=== PATIENT | male | born 1935 | race Caucasian/White ===

== ENCOUNTER 2017-02-17 21:18 | Observation (INO) | payer MEDICARE, OTHER ==
[~2017-02-17] VITALS: Ht 177.8 cm; Wt 84.9 kg
[~2017-02-17 21:18] MED LIST: ASPI81TA40 PO; CHOL10008 PO; FLONASE NS; IPRA3AMP HHN; MTP50TCR PO; PAX20 PO; PRE20 PO; ZES20 PO
[2017-02-17 21:24] VITALS: BP 185/95; PULSE 80; RESP 20; O2SAT 98
[2017-02-17 22:02] LABS: BASOPHILS % (AUTO) 0.9 % (0-3); EOSINOPHILS % (AUTO) 4.3 % (0-5); MONOCYTES % (AUTO) 15.2 % (4-12); Mean Corpuscular Hemoglobin 30.9 pg (27.0-35.0); Mean Corpuscular Volume 90.5 fL (81-100); NEUTROPHILS % (AUTO) 48.1 % (40-74); Platelet Count 226 bil/L (150-400)
[2017-02-17 22:14] LABS: INR 0.94 ratio
[2017-02-17] MEDS ORDERED: 0.9% Sodium Chloride 500 ML IV ONE (22:20)
[2017-02-17 22:32] LABS: TROPONIN T 0.01 ug/L (0.0-0.011)
--- NOTE | 2017-02-17 22:47 | ED.REPORT ---
HPI-Eye Problem Date of Service Feb 17, 2017 ED Provider: Eric Rojas MD 81-year-old male with past medical history of hypertension since the emergency department today after an episode of diplopia. He states that this occurred well he was sitting at home watching TV. He was concerned about this and called his daughter who noted at that time that he had small amount of slurred speech, but he states that he was not aware of any slurring of his speech. He denies any other symptoms related to this episode including weakness, imbalance , decreased neurological sensations, confusion. Upon arrival to the hospital he states that his symptoms have resolved over the past hour. He currently experiences no diplopia or visual changes, and the family is unaware of any changes in his speech. His stroke score here in the ED today is currently 0. He denies headache chest pain, shortness of breath, nausea, vomiting, changes in bowel or bladder. Nursing Notes Stated Complaint: SEEING DOUBLE/TRIPLE Chief Complaint: Neuro Symptoms/ Deficits Nursing Notes Reviewed: Yes Allergies: Coded Allergies: No Known Allergies (Verified , 02/18/17) Scheduled Aspirin Chew (Aspirin Chew) 81 Mg Chew 81 MG PO QAM Cholecalciferol (Vitamin D3) (Vitamin D3) 2,000 Unit Tablet 2,000 UNIT PO QAM Lisinopril (Lisinopril) 40 Mg Tablet 40 MG PO QAM Metoprolol Tartrate (Metoprolol Tartrate) 50 Mg Tablet 50 MG PO BID Paroxetine (Paroxetine) 20 Mg Tablet 20 MG PO QAM Tamsulosin ER (Tamsulosin ER) 0.4 Mg Cap.er.24h 0.4 MG PO DAILYWD Scheduled PRN Albuterol HFA (Proair HFA) 8.5 Gm Hfa.aer.ad 2 PUFFS INHALATION Q4H PRN PRN For Shortness of Breath Fluticasone Propionate (Flonase Allergy Relief) 50 Mcg/Actuation [place].susp 1 SPRAYS NS DAILY PRN PRN For Congestion Loratadine (Loratadine) 10 Mg Capsule 10 MG PO DAILY PRN PRN allergies General Time Seen by MD: 21:32 Chief Complaint Both eyes affected, Double vision Hx Obtained From: Patient Sudden in Onset?: Yes Onset Occurred: Just prior to arrival Progression Since Onset: Resolved Context: Occurred at: Home Severity: Current: No pain currently Risk-Eye Problem Eye Injury Risk Stratification RF Statements: Risk factors reviewed Past Medical History Past Medical History Reports: Hypertension Smoking History Current Every Day Smoker Social History Alcohol Use: 1-3 per day Drug Use: Denies drug use Other Social History: Lives alone Review of Systems Complete sys rev & neg: except as marked. Physical Exam Initial Vital Signs Vital Signs (First) Date Time Temp Pulse Resp B/P Pulse Ox O2 Delivery O2 Flow Rate FiO2 02/17/17 21:24 36.7 80 20 185/95 98 Room Air Initial VS: Reviewed, Vital signs abnormal General / Const: Well-developed, Well-nourished ENT: Mucous membranes moist, Conjunctiva normal, No scleral icterus Neck: Supple, Non-tender, Full range of motion Respiratory: Breath sounds normal, Clear to auscultation, No respiratory distress Cardiovascular: Regular rate & rhythm, Heart sounds normal, Intact distal pulses Abdomen / GI: Soft, Non-tender, No guarding, No rebound, No distention Extremities: Vascular intact, Neuro intact, No swelling, No tenderness Skin: Warm, Dry, No cyanosis Neurologic: Alert, Oriented, Nonfocal Psychiatric: Mood/affect normal, Behavior normal, Normal thought content Neurologic: Oriented X3, Speech NL, No motor deficits, No sensory deficits, CN II - XII intact, Cerebellar NL Mental Status: Negative: Confused Interpretation & Diagnostics Interpretation & Diagnostics: Noncontrast CT Head Conclusion: Loss of wilhelm/white matter differentiation involving the inferior left temporal lobe suggesting an acute infarct. Moderate involutional changes. Moderate patchy low density bilaterally in the deep white matter likely due to chronic ischemic small vessel disease. No acute intracranial abnormality. These findings were discussed with Dr. Rojas /04/2017 10:11 PM This report is transmitted to the emergency room at 02/17/2017 10:22 PM weight shifter radiology Lab Results Interpretation Result Diagram: 02/18/17 0520 02/18/17 0520 Test 02/17/17 21:45 02/17/17 23:15 Neutrophils (%) (Auto) 48.1% (40-74) Lymphocytes (%) (Auto) 31.2% (14-46) Monocytes (%) (Auto) 15.2% (4-12) Eosinophils (%) (Auto) 4.3% (0-5) Basophils (%) (Auto) 0.9% (0-3) Hold Purple Top Tube Received (Received) Prothrombin Time 10.0sec (8.1-12.5) Prothromb Time International Ratio 0.94ratio Activated Partial Thromboplast Time 33.6sec (22.8-33.0) Hold Blue Top Tube Received (Received) Total Bilirubin 0.5mg/dL (0.0-1.2) Aspartate Amino Transf (AST/SGOT) 22U/L (0-50) Alanine Aminotransferase (ALT/SGPT) 13U/L (0-44) Alkaline Phosphatase 104U/L (25-160) Troponin T 0.010ug/L (0.0-0.011) Total Protein 7.1g/dL (6.4-8.4) Albumin 4.1g/dL (3.4-5.0) Hold [place] Top Tube Received (Received) Hold [place] Top Tube Received (Received) Urine Color Yellow (YELLOW) Urine Appearance Clear (CLEAR,HAZY) Urine pH 6.5 (5.0-8.0) Urine Specific [place] 1.005 (1.003-1.035) Urine Protein Negativemg/dL (NEG,TRACE) Urine Glucose (UA) Negativemg/dL (NEGATIVE) Urine Ketones Negativemg/dL (NEGATIVE) Urine Occult Blood Trace (NEGATIVE) Urine Nitrite Negative (NEGATIVE) Urine Bilirubin Negative (NEGATIVE) Urine Urobilinogen Normalmg/dL (NORMAL) Urine Leukocyte Esterase Negative (NEGATIVE) Urine RBC 0-2/hpf (0-2) Urine WBC 0-5/hpf (0-5) Urine Epithelial Cells Occasional/hpf (NONE-MOD) Urine Crystals None seen (NONE SEEN) Urine Bacteria None/hpf (NONE-FEW) Urine Hyaline Casts None/lpf (NONE) Urine Granular Casts None seen (NONE SEEN) Urine Waxy Casts None seen (NONE SEEN) Urine Red Blood Cell Casts None seen (NONE SEEN) Urine White Blood Cell Casts None seen (NONE SEEN) Urine Mucus None seen (None Seen) Urine Trichomonas None seen (NONE SEEN) Urine Yeast None (NONE SEEN) Urinalysis Comment None Urine Culture Reflexed Not indicated Lab Results Interpretation: Clinically insignificant labs ECG Interpretation Time: 10:04 Interpreted by: ED physician Normal ECG Interpretation: Normal rate, Normal sinus rhythm, Normal QRS, Normal axis, Normal intervals Atrium and Vent Size: Atrial enlargement - L, Ventricle enlarged - L Re-Eval/Medical Decision Med Decision/Clinical Course 81-year-old presents with diplopia and apparently some brief speech disturbances sounds like dysarthria as described by his family. All of these symptoms are now resolved. His stroke score is zero. CT scan shows stroke of indeterminate age, subacute in the inferior temporal lobe. No evidence of bleeding. He has no symptoms or signs referable to this area at this time. This may have been a stroke in the past week or so that was asymptomatic. Admitted now for vascular workup including MRA stroke protocol and echocardiography. The results of the CT scan and his presentation are concerning for TIA and should be evaluated and observed overnight. Counseled Regarding: Diagnosis, Lab results, Need for admission Discharge & Departure Primary Impression: TIA (transient ischemic attack) Transient cerebral ischemia type: unspecified Qualified Code: G45.9 - Transient cerebral ischemic attack, unspecified Additional Impressions: Double vision Stroke CVA mechanism: thrombosis Precerebral and cerebral artery: middle cerebral artery Laterality of affected vessel: left Qualified Code: I63.312 - Cerebral infarction due to thrombosis of left middle cerebral artery Disposition: ADMITTED TO HOSPITAL Discharge Condition All VS Reviewed: Yes Condition: Stable Referrals: Angeline Corrales MD (PCP) Isael Rodrigues DO Feb 17, 2017 22:47 Eric Rojas MD Feb 18, 2017 07:24 None/lpf (NONE) Urine Granular Casts None seen (NONE SEEN) Urine Waxy Casts None seen (NONE SEEN) Urine Red Blood Cell Casts None seen (NONE SEEN) Urine White Blood Cell Casts None seen (NONE SEEN) Urine Mucus None seen (None Seen) Urine Trichomonas None seen (NONE SEEN) Urine Yeast None (NONE SEEN) Urinalysis Comment None Urine Culture Reflexed Not indicated Lab Results Interpretation: Clinically insignificant labs ECG Interpretation Time: 10:04 Interpreted by: ED physician Normal ECG Interpretation: Normal rate, Normal sinus rhythm, Normal QRS, Normal axis, Normal intervals Atrium and Vent Size: Atrial enlargement - L, Ventricle enlarged - L Re-Eval/Medical Decision Med Decision/Clinical Course The results of the CT scan and his presentation are concerning for TIA and should be evaluated and observed overnight. Counseled Regarding: Diagnosis, Lab results, Need for admission Discharge & Departure Primary Impression: TIA (transient ischemic attack) Transient cerebral ischemia type: unspecified Qualified Code: G45.9 - Transient cerebral ischemic attack, unspecified Additional Impression: Double vision Disposition: ADMITTED TO HOSPITAL Discharge Condition All VS Reviewed: Yes Condition: Stable Referrals: Angeline Corrales MD (PCP) Isael Rodrigues DO Feb 17, 2017 22:47
[2017-02-17 22:54] VITALS: BP 168/73; PULSE 79; RESP 21; O2SAT 94
[2017-02-17 23:38] LABS: APPEARANCE,URINE CLEAR (CLEAR,HAZY); COLOR,URINE YELLOW (YELLOW); OCCULT BLOOD,URINE TRACE (NEGATIVE); PH,URINE 6.5 (5.0-8.0); UROBILINOGEN,URINE NORMAL (NORMAL)
--- NOTE | 2017-02-17 23:41 | PCM.HPMED ---
Subjective Date of Service Feb 17, 2017 Primary Provider: Admitting Physician: Primary Care Physician: Angeline Corrales MD Attending Physician: Admit Status: From the Emergency Department Chief Complaint: Double vision History of Present Illness: Gómez Segundo is an 81-year-old man with past medical history significant for hypertension, COPD, anxiety, and tobacco use who presents with diplopia. Patient states that she was lying in bed watching TV when suddenly he began to have double vision around 1999 on 02/17/17. He immediately called his daughter who arrived at the house and subsequently brought him to the ED. Daughter states that when her father called his speech was clear and easily understood. Patient denies any associated symptoms including weakness, slurred speech, facial droop, confusion, or headache. Diplopia was still present on arrival to the ED but resolved without intervention over the next half an hour. Patient denies any use of blood thinners aside from aspirin 81 mg. Patient denies any prior episodes of diplopia or history of TIA or stroke. He denies any shortness of breath, chest pain, nausea, vomiting, dysuria, or diarrhea. On presentation to the ED vitals were temperature 36.7, pulse 80, respiratory rate 20 saturating 98% on room air, and blood pressure 185/95. Brain CT revealed loss of currently in white matter differentiation involving the inferior left temporal lobe suggesting an acute infarct, moderate patchy low density deep white matter changes likely due to chronic ischemic small vessel disease, but no acute intracranial abnormality. Review of Systems: Comprehensive review of systems was conducted with the patient and found to be negative except as noted above in HPI. Allergies Coded Allergies: No Known Allergies (Verified , 02/18/17) Home Medications Aspirin 81 mg daily Tamsulosin 0.4 mg daily Provera Paroxetine 20 mg daily Metoprolol tartrate 50 mg twice a day Loratadine 10 mg daily Lisinopril 40 mg daily Flonase PMH Hypertension COPD Anxiety Renal insufficiency Tobacco abuse Echocardiogram on 10/23/10 showed an EF of 55-60%, with no focal wall motion abnormalities, and aortic valve with some sclerotic changes. Surgical History None Family History Father - myocardial infarction at age 71 Mother - myocardial infarction age 65 Sister - colon cancer Social History Occupation: retired Hx Alcohol Use: Yes (1 beer a day) Hx Substance Use: No Hx Tobacco Use: Yes (lifelong) Smoking Status: Current Every Day Smoker Living Arrangement: Alone Exam Vital Signs Vital Sign - Last Date Time Temp Pulse Resp B/P Pulse Ox O2 Delivery O2 Flow Rate FiO2 02/17/17 22:54 79 21 168/73 94 Room Air 02/17/17 21:24 36.7 Exam General: No acute distress, well-developed, well-nourished, appropriately interactive HEENT: Normocephalic, atraumatic. Edentulous. External ears without defect. Pupils equal, round, and reactive to light and accommodation. Anicteric sclerae , moist conjunctivae, and no lid lag. Oropharynx free of erythema and cobble stoning with moist mucosa. Neck: Supple with full range of motion. No jugular venous distension. No bruits. No lymphadenopathy or thyromegaly. Cardiovascular: Regular rate and rhythm with no murmurs, rubs, or gallops appreciated Pulmonary: Diffuse, faint crackles and wheezes. Normal respiratory effort with no use of accessory muscles. Abdomen: Bowel tones present. Soft, nontender, nondistended. No hepatosplenomegaly or masses appreciated. Extremities: No clubbing, cyanosis, edema, or lymphadenopathy appreciated. Skin: Normal temperature, turgor, and texture; no rash, ulcers, or subcutaneous nodules appreciated. Neurological: Cranial nerves grossly intact. Normal muscle strength, tone, and bulk. Reflexes, coordination, and sensory function within normal limits. No known gait impairment. Psychiatric: Normal mood and affect. Alert and oriented to person, place, and time. Lab and Diagnostics Result Diagram: 02/17/17214402/[id number] X-Rays, CTs and MRIs Noncontrast CT Head Conclusion: Loss of wilhelm/white matter differentiation involving the inferior left temporal lobe suggesting an acute infarct. Moderate involutional changes. Moderate patchy low density bilaterally in the deep white matter likely due to chronic ischemic small vessel disease. No acute intracranial abnormality. These findings were discussed with Dr. Rojas /04/2017 10:11 PM This report is transmitted to the emergency room at 02/17/2017 10:22 PM information management specialist radiology 12-lead ECG Normal sinus rhythm Assessment & Plan Gómez Segundo is an 81-year-old man with past medical history significant for hypertension, COPD, anxiety, and tobacco use who presents with diplopia. Admitted for observation of possible TIA. TIA, present on admission, active. - Not a candidate for TPA due to symptom resolution. - Head CT without contrast results as above. - ABCD score was 3. - EKG showed normal sinus rhythm. - Monitor on telemetry to rule out atrial fibrillation. - MR stroke protocol ordered. - Echo with bubble study ordered. - Consider lower extremity ultrasound to rule out DVTs in the morning. - Allow for permissive hypertension to not treat unless SBP >220 or DBP >120 - Aspirin 325 mg given. - Clopidogrel ordered. - Atorvastatin 40 mg daily started. - Lipid Panel pending. - Speech and swallow evaluation pending. Hypertension, present admission, active. Patient presented with BP of 185/95. Unclear whether he took his evening dose of metoprolol. - Allow permissive hypertension as above. - Home regimen includes metoprolol tartrate 50 mg twice a day and lisinopril 40 mg daily. COPD, present on admission, chronic. Secondary to tobacco use. - Home regimen includes pro-air as needed. - Duonebs every 6 hours as needed. Anxiety, present on admission, presumed stable. - Continue home regimen of paroxetine 20 mg daily. Tobacco use disorder, present on admission, ongoing. - Patient declined nicotine patch. BPH, present on admission, chronic. - Home regimen includes Tamsulosin 0.4 mg daily. PRN Medications - Acetaminophen as needed for mild pain/fever/headache - Bowel regimen as needed - Antiemetic as needed Patient is admitted under observation status with expected length of stay less than 2 midnights due to severity of presenting symptoms, risk of adverse event, and complexity of treatment plan. Pain Evaluation: Adequate Pain Control GI Prophylaxis: Not indicated VTE Prophylaxis: Sub-Q Heparin (Unfractionated), SCDs Resuscitation Status: DNR/DNI:Do Not Resuscitate/Intubate Attending Statement The patient was seen and examined together with house staff on 02/18/17 and I agree with the history, exam and plan as outlined in the note above. PILY GUTIERREZ DO Feb 17, 2017 23:41 Meaghan Cano DO Feb 18, 2017 05:22
[2017-02-17] MEDS ORDERED: Ondansetron 2 mg/mL 2 mL Inj IVPUSH PRN (23:45)
[2017-02-17] MEDS ORDERED: Alum-Mag Hydrox-Simeth 30 mL Suspension PO PRN (23:45)
[2017-02-18] VITALS (12 sets, daily range): BP systolic 128–178; BP diastolic 57–77; PULSE 67–88; RESP 16–20; O2SAT 93–95
[2017-02-18] MEDS ORDERED: ALBU8.5H2 INHALATION (00:09)
[2017-02-18] MEDS ORDERED: ASPI81TA3 PO (00:09)
[2017-02-18] MEDS ORDERED: LORA10CA9 PO (00:09)
[2017-02-18] MEDS ORDERED: CHOL200025 PO (00:12)
[2017-02-18] MEDS ORDERED: TAMS0.4C29 PO (00:12)
[2017-02-18] MEDS ORDERED: FLUT9.9S NS (00:12)
[2017-02-18] MEDS ORDERED: PARO20TA5 PO (00:12)
[2017-02-18] MEDS ORDERED: METO50TA3 PO (00:12)
[2017-02-18] MEDS ORDERED: LISI40TA PO (00:12)
[2017-02-18] MEDS ORDERED: Albuterol-Ipratropium 3 mL Inhalation Solution NEB PRN (01:15)
--- NOTE | 2017-02-18 05:16 | NUR ---
Admit: Pt arrived to room 3008 around 0045, ambulated self to scale, BR and bed; daughters at bedside for admit and assisted with answering admit questions. Pt AOx3, no neuro deficits noted. Tele placed, RA, bed alarm on for safety. Pharmacist in ED entered pt's home medication list. No c/o pain, chest pain or SOB. Skin chest not completed at this time, pt denies any sores or concerning areas on skin; will pass to dayshift RN to complete.
[2017-02-18 05:44] LABS: Mean Corpuscular Hemoglobin 30.7 pg (27.0-35.0); Mean Corpuscular Volume 88.9 fL (81-100)
--- NOTE | 2017-02-18 07:57 | DRSVH ---
PROCEDURE: CT BRAIN WITHOUT CONTRAST ([id number]) INDICATIONS: DOUBLE/TRIPLE VISION X1 HOUR TECHNIQUE: Noncontrast 4.5 mm thick angled axial sections acquired from the foramen magnum to the vertex, with c oronal reformats. COMPARISON: CT brain 11/27/2010; 03/10/2009; 01/04/2004 FINDINGS: Preliminary report by shift coordinator radiology Image quality: Excellent. CSF spaces: Basal cisterns are patent. No extra-axial fluid collections. The ventricles are symmet génesis in size and shape. Brain: No intracranial bleeds or masses. Mild, ill-defined hypodensity within the left temporal lobe is suggestive of acute ischemic infarct. There is also an area of hypodensity in the left insula and centrum semi-ovale that appears increased since prior exam. There is cerebral volume loss for age, w ith resultant ventricular and sulcal prominence. There are periventricular and deep white matter chr onic small vessel ischemic changes. There is intracranial internal carotid artery atherosclerosis. Skull and face: Calvarium and visualized facial bones appear intact, without suspicious lesions. Sinuses: Visualized sinuses and mastoids are clear. IMPRESSION: 1. Findings are suggestive of acute left temporoparietal ischemic infarct. Suggest MRI imaging and cl inical correlation for confirmation. 2. Mild age related atrophy and chronic deep white matter ischemic changes. Findings are concordant with the preliminary report. Dictated by: Jim Nuñez M.D. on 02/18/2017 at 7:50 Approved by: Jim Nuñez M.D. on 02/18/2017 at 7:55
[2017-02-18] MEDS: Heparin 5,000 Unit/mL Inj SUBQ SCH ×2 (08:35→20:30)
--- NOTE | 2017-02-18 10:16 | NUR ---
Evaluation completed. Please go to "Notes" then click on "Assessments and Notes" (bottom left corner of screen). Then select appropriate discipline tab on top of screen.
--- NOTE | 2017-02-18 10:44 | NUR ---
Off Unit: Patient transported to MRI dept at approx 1015 via wheelchair accompanied by transporter. Notified by MRI staff that once patient arrived to MRI dept that he refused exam due to claustrophobia. Patient returned to room. text paged.
--- NOTE | 2017-02-18 14:40 | NUR ---
Social Work-initial assessment: Data:See initial assessment. Pt is a 81 y/o male who was admitted on 02/17/17 for TIA per H&P. Pt's insurance is [facility] and [employer] [place] and PCP is Angeline Corrales MD. EMR reviewed. AIRAM met with pt and daughter Daphney [phone] at bedside, SW role explained. Pt is alert and oriented x3. Pt resides at home with alone in [place] where he remains independent with ADLS. Pt drives and does not use any DME, pt has a cane to use. Pt has no HH or SNF history. Pt has no residential care insurance or VA benefits. SW discussed DPOA/ advanced directive, daughter confirms they have worked on this, SW encouraged a copy to be brought in. PT is pending. Daughter confirms she or her sister will provide transport home. SW provided pt with discharge planning checklist and encouraged them to call with any questions. SW provided phone number and plan on white board in room. SW will continue to follow. Assessment:Pt who is independent at baseline. Plan:Pt to discharge home when medically stable via POV. PT evaluation is pending. SW will continue to follow. CHERI Del Castillo Addendum: 02/18/17 at 1450 by MICHAELA WORLEY Amended: Links added.
--- NOTE | 2017-02-18 14:50 | NUR ---
Social Work-multidisciplinary rounds: Per MD in morning rounds ,pt is not medically stable today anticipate 1-2 more days. Pt to have MRI and therapy services. SW has completed initial assessment. CHERI Del Castillo
--- NOTE | 2017-02-18 15:18 | PCM.PNMED ---
Subjective Date of Service Feb 18, 2017 Subjective Patient is seen and examined. He is getting an US echo done. His daughter is in the room her name is Daphney who says that he does not really have any slurred speech. She suggests that he may have been unclear when he made the initial phone call about his diplopia. Patient declined MRI due to claustrophobia. Offered him Ativan but he still did not want to do it. No other complaints Exam Vital Signs Vital Sign - Last Date Time Temp Pulse Resp B/P Pulse Ox O2 Delivery O2 Flow Rate FiO2 02/18/17 04:38 36.6 67 16 163/74 95 Room Air Exam Gen.: No acute distress laying in bed physical examination HEENT: Hard of hearing Eyes: [place] conjunctivae. No ptosis, PERRL, blinking Neck: No masses, trachea midline, no thyromegaly Lungs: CTA with normal respiratory effort, no crackles or wheezes CV: RRR, no murmurs/rubs/gallops, normal PMI GI: Soft, non-tender with no hepatosplenomegaly MSK: Normal gait and station, no digital cyanosis. Reduced musculoskeletal strength in right upper and right lower extremity (patient states this is his baseline) Neurological: Positive for right arm drift due to weakness, negative alternating hands, negative [id number], negative Babinski, CN II-12 grossly normal, gagging deferred Skin: Warm and dry. No rash, lesions or ulcers Psych: A&O X3, with appropriate affect IVs and Medications IV Fluids None Medications Reviewed: Medications were reviewed in detail Lab and Diagnostics Result Diagram: 02/17/17214402/17/172144 X-Rays, CTs and MRIs Noncontrast CT Head Conclusion: Loss of wilhelm/white matter differentiation involving the inferior left temporal lobe suggesting an acute infarct. Moderate involutional changes. Moderate patchy low density bilaterally in the deep white matter likely due to chronic ischemic small vessel disease. No acute intracranial abnormality. These findings were discussed with Dr. 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 Admitted for observation of possible TIA. Acute CVA, present on admission, active. -- This patient has declined MRI we will treat this as an acute stroke, but the information we have from the CT - Not a candidate for TPA due to symptom resolution. - Head CT without contrast results as above. - ABCD score was 3. - EKG showed normal sinus rhythm. - Monitor on telemetry to rule out atrial fibrillation. - MR stroke protocol ordered. Patient refused - Echo with bubble study ordered. Results pending - Allow for permissive hypertension to not treat unless SBP >220 or DBP >120 - Clopidogrel was initiated. Aspirin is discontinued - Atorvastatin 40 mg daily started. - Lipid Panel shows cholesterol 182 LDL 107 and triglycerides of 55 - Speech and swallow evaluation pending. --Ultrasound of carotids was ordered as patient declined MRA stroke protocol --A1c is ordered to see if we need to treat his diabetes -- Based on the echo result consider a general patch and Holter monitor discharge Hypertension, present admission, active. Patient presented with BP of 185/95. Unclear whether he took his evening dose of metoprolol. - Allow permissive hypertension as above. - Home regimen includes metoprolol tartrate 50 mg twice a day and lisinopril 40 mg daily. COPD, present on admission, chronic. Secondary to tobacco use. - Home regimen includes pro-air as needed. - Duonebs every 6 hours as needed. Anxiety, present on admission, presumed stable. - Continue home regimen of paroxetine 20 mg daily. Tobacco use disorder, present on admission, ongoing. - Patient requested nicotine patch. BPH, present on admission, chronic. - Home regimen includes Tamsulosin 0.4 mg daily. Right extremity weakness, chronic: Chronic according to patient PRN Medications - Acetaminophen as needed for mild pain/fever/headache - Bowel regimen as needed - Antiemetic as needed Patient is admitted under observation status with expected length of stay less than 2 midnights due to severity of presenting symptoms, risk of adverse event, and complexity of treatment plan. GI Prophylaxis: Not indicated VTE Prophylaxis: Sub-Q Heparin (Unfractionated), SCDs Resuscitation Status: DNR/DNI:Do Not Resuscitate/Intubate Time spent 30 minutes Aline Thomson DO Feb 18, 2017 05:47
--- NOTE | 2017-02-18 16:10 | DRSVH ---
[facility] [address] [place] [address] Echocardiogram Report Name: NANCY GEE HStudy Date: 02/18/2017 Height: 70 in Hospital Exam Location: [facility] Weight: 187 lb Gender: Male BSA: 2.0 m2 : 1935 Age: 81 yrs BP: 163/74 m mHg Reason For Study: TIA Ordering Physician: HOSPITALIST [facility] Performed By: Kaylie Garcia Referring Physician: [facility] Interpretation Summary Technically difficult study. Mild concentric left ventricular hypertrophy with ejection fraction 55-60%. Grade I diastolic dysfunction. Mildly dilated left atrium. Mild aortic stenosis. The peak aortic velocity is 2.1 m/sec. Mild aortic regurgitation. Moderate mitral annular calcification. Mild-moderately enlarged ascending aorta. Injection of contrast documented an interatrial shunt. Procedure: A two-dimensional transthoracic echocardiogram with color flow and Doppler was performed. The study quality was technically difficult. Comparison is made with the echocardiogram of 10/23/2010. A saline contrast injection was performed to assess for cardiac shunting. The patient was in normal sinus rhythm during the exam. Left Ventricle: The left ventricle is normal in size. There is mild concentric left ventricular hypertrophy. There is no thrombus. The ejection fraction is estimated to be 55-60%. There are no obvious focal wall motion abnormalities noted but poor endocardial definition reduces the sensitivity for the detection of such. Assessment of diastolic parameters indicates a relaxation abnormality of the left ventricle, consistent with normal filling pressures. Right Ventricle: The right ventricle is normal in size and function. Atria: The left atrium is mildly dilated. Right atrial size is normal. Injection of contrast documented an interatrial shunt. Mitral Valve: There is moderate mitral annular calcification. There is trace mitral regurgitation. Aortic Valve: The aortic valve is not well visualized. The aortic valve is moderately calcified. There is mild aortic stenosis. The peak aortic velocity is 2.1 m/sec. The aortic valve mean gradient is 7.6 mmHg. The aortic valve area indexed to the BSA is 1.3 . The calculated aortic valve area is 2.5 cm2. There is mild aortic regurgitation. Tricuspid Valve: The tricuspid valve is not well visualized, but is grossly normal. There is a trace or physiologic amount of tricuspid regurgitation. The right ventricular systolic pressure is estimated at 23 mmHg assuming a right atrial pressure of 3 mm Hg. Pulmonic Valve: The pulmonic valve is not well visualized. Great Vessels: The aortic root is normal size. The ascending aorta is mild- moderately enlarged. The aortic arch could not be visualized. The IVC is of normal diameter and collapses greater than 50% with a sniff. This suggests a low right atrial pressure of 3 mm Hg. Pericardium/ Pleura There is no pericardial effusion. MMode/2D Measurements & Calculations LVIDd: 5.0 cm RA long axis LVOT diam LVIDs: 3.6 cm LA A2 area: 20.5 cm FS: 28.6 % LA A4 area: 24.6 cm RA area AoV Opening EPSS: 0.85 cm LA length (vol): 6.1 cm IVSd: 1.0 cm LA vol: 70.2 ml : 19.0 cm Ao root diam LVPWd: 1.2 cm LA vol index RA vol : 51.2 ml asc Aorta RA Diam: 4.1 cm IVC diam: 1.3 cm : 25.2 mm2 LV oakes. diameter/BSA LV sys. diameter/BSA RVD1 (basal) TAPSE: 2.1 cm (cm/m^2): 2.5 (cm/m^2): 1.8 Doppler Measurements & Calculations Ao V2 max MV E max jarrett MV E/A: 0.47 TR max jarrett : 205.5 cm/sec : 43.9 cm/sec Med Peak E' Jarrett : 221.9 cm/sec Ao max P.9 mmHg MV A max jarrett TR max PG Ao mean P.6 mmHg : 92.5 cm/sec E/E' med: 7.9 : 19.7 mmHg LVOT Max Jarrett MV P1/2t Lat Peak E' Jarrett : 86.3 cm/sec : 109.5 msec GABRIELA(I,D): 2.5 cm E/E' lat: 6.0 sev ratio: 0.53 E/e' average: 7.0 MV dec time: 0.37 sec MV P1/2t max jarrett Ao V2 mean LV V1 max PG : 124.5 cm/sec MVA(P1/2t) Ao V2 VTI: 42.3 cm LV V1 VTI : 22.4 cm : 2.0 cm2 GABRIELA(V,D): 2.0 cm2 GABRIELA indexed to BSA (cm^2/m^2): 1.3 Electronically signed by: Talib Jacques on Reading Physician:02/18/2017 04:09 PM
--- NOTE | 2017-02-18 16:35 | NUR ---
Case Management: ALEXANDRU explained to patient and his daughter at 1615, all questions answered. Signed original placed in chart, copy given to daughter Ariadne Larry. Medicare Drug D info refused by daughter. Farheen Juarez RN
[2017-02-18 18:25] LABS: OSMOLALITY, URINE 548 mOs/kH2O (250-1200)
--- NOTE | 2017-02-18 21:21 | DRSVH ---
PROCEDURE: US BILATERAL DUPLEX DOPPLER IMAGING OF THE CAROTIDS ([id number]) INDICATIONS: stroke/cva TECHNIQUE: Color and pulse Doppler interrogation was performed of both carotid systems, with image documentation and velocity measurements. COMPARISON: None. FINDINGS: Stenosis calculations are based on SRU (Society of Radiologists in Ultrasound) criteria. Right side: Brachial blood pressure: 136/57 mm Hg. Common carotid artery peak systolic velocity: 79 cm/sec. Internal carotid artery peak systolic velocity: 72 cm/sec. Internal carotid artery end diastolic velocity: 8 cm/sec. External carotid artery peak systolic velocity: 95 cm/sec. ICA/CCA peak systolic ratio: 0.9. Peralta scale imaging description: Moderate plaque at the bifurcation. Percent internal carotid artery stenosis: Less than 50%. Vertebral artery: Flow direction is antegrade. Left side: Brachial blood pressure: Not obtained Common carotid artery peak systolic velocity: 55 cm/sec. Internal carotid artery peak systolic velocity: 107 cm/sec. Internal carotid artery end diastolic velocity: 19 cm/sec. External carotid artery peak systolic velocity: 41 cm/sec. ICA/CCA peak systolic ratio: 2.0. Peralta scale imaging description: Moderate plaque at the bifurcation. Percent internal carotid artery stenosis: Less than 50%. Vertebral artery: Flow direction is antegrade. IMPRESSION: Less than 50% stenosis of the internal carotid arteries bilaterally. Dictated by: Luz Saxena M.D. on 02/18/2017 at 21:18 Approved by: Luz Saxena M.D. on 02/18/2017 at 21:19
[2017-02-19] VITALS (8 sets, daily range): BP systolic 148–175; BP diastolic 72–81; PULSE 63–107; RESP 16–20; O2SAT 94–96
[2017-02-19 02:09] LABS: Hemoglobin A1C 5.5 % (4.8-5.6)
--- NOTE | 2017-02-19 05:16 | NUR ---
Uneventful Night: Pt had an uneventful night, no c/o haro, chest pain or SOB, neuros remain intact, no deficit noted. Pt slept most of the night, pleasant and cooperative with care. Report passed to Lisa STOVER.
[2017-02-19] MEDS ORDERED: CLOP75TA28 PO (05:49)
[2017-02-19] MEDS ORDERED: ATOR40TA69 PO (05:49)
--- NOTE | 2017-02-19 10:33 | NUR ---
Social Work-readiness for discharge/ multidisciplinary rounds: Data:EMR reviewed. Pt is on day 2 of hospitalization for TIA per H&P. Pt is likely medically stable later today or tomorrow. PT has seen pt and recommended home with outpt PT services. Pt refused MRI yesterday, MD to discuss possibility of CTA today with pt.MD has no concerns for pt and RN states pt is able to follow directions and instruction pt has capacity for self care. Pt's family to provide transport home at discharge. No anticipated discharge needs. SW will continue to follow if needs arise. Assessment:Pt who is independent at baseline. Plan:Pt to discharge home when medically via POV. No anticipated discharge needs. SW will continue to follow if needs arise. CHERI Del Castillo
[2017-02-19] MEDS: Heparin 5,000 Unit/mL Inj SUBQ SCH ×2 (10:45→21:45)
--- NOTE | 2017-02-19 11:04 | PCM.PNMED ---
Subjective Date of Service Feb 19, 2017 Subjective Pt is seen and examined. No change from yesterday. He c/o not having his electric razor. Daughter in the room, her questions were answered. Exam Vital Signs Vital Sign - Last Date Time Temp Pulse Resp B/P Pulse Ox O2 Delivery O2 Flow Rate FiO2 02/19/17 10:45 97 02/19/17 08:59 36.3 18 155/76 94 Room Air Intake and Output 02/18/17 02/18/17 02/19/17 Cumulative From/Thru 15:00 23:00 07:00 02/17/17 21:24 - 02/19/17 06:10 Intake Total 725 ml 300 ml 1175 ml Output Total 425 ml 700 ml 1125 ml Balance 300 ml -400 ml 50 ml Intake Oral 725 ml 300 ml 1175 ml Output Urine Total 425 ml 700 ml 1125 ml # Voids 1 2 # Bowel Movements 1 1 0 2 Exam Gen.: No acute distress laying in bed physical examination HEENT: Hard of hearing Eyes: [place] conjunctivae. No ptosis, PERR Neck: No masses, trachea midline, no thyromegaly Lungs: CTA with normal respiratory effort, no crackles or wheezes CV: RRR, no murmurs/rubs/gallops, normal PMI GI: Soft, non-distended Neurological: CN II-12 grossly normal, gagging deferred, visual allen intact, neg for nystagmus Skin: Warm and dry. No rash, lesions or ulcers Psych: A&O X3, with appropriate affect IVs and Medications Medications Reviewed: Medications were reviewed in detail Lab and Diagnostics Laboratory Tests Test 02/19/17 11:25 Sodium Level 133mEq/L (134-144) Potassium Level 4.2mEq/L (3.5-5.2) Chloride Level 94mEq/L (97-108) Carbon Dioxide Level 21mmol/L (18-29) Blood Urea Nitrogen 16mg/dL (8-27) Creatinine 0.79mg/dL (0.76-1.27) Estimat Glomerular Filtration Rate 100mL/min (>59) Glucose Level 97mg/dL (60-99) Calcium Level 9.4mg/dL (8.5-10.1) Result Diagram: 02/18/1751902/18/17 0520 X-Rays, CTs and MRIs Noncontrast CT Head Conclusion: Loss of wilhelm/white matter differentiation involving the inferior left temporal lobe suggesting an acute infarct. Moderate involutional changes. Moderate patchy low density bilaterally in the deep white matter likely due to chronic ischemic small vessel disease. No acute intracranial abnormality. These findings were discussed with Dr. 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 Mild concentric left ventricular hypertrophy with ejection fraction 55-60%. Grade I diastolic dysfunction. Mildly dilated left atrium. Mild aortic stenosis. The peak aortic velocity is 2.1 m/sec. Mild aortic regurgitation. Moderate mitral annular calcification. Mild-moderately enlarged ascending aorta. Injection of contrast documented an interatrial shunt. Electronically signed by: Talib Jacques on Reading Physician:02/18/2017 04:09 PM Assessment & Plan Gómez Segundo is an 81-year-old man with past medical history significant for hypertension, COPD, anxiety, and tobacco use who presents with diplopia. Admitted for observation of possible TIA. Acute CVA, present on admission, active. - Not a candidate for TPA due to symptom resolution. - Head CT without contrast results as above. - ABCD score was 3. - EKG showed normal sinus rhythm. - Monitor on telemetry to rule out atrial fibrillation. - MR stroke protocol ordered. Patient refused - Echo with bubble study ordered. Results pending - Allow for permissive hypertension to not treat unless SBP >220 or DBP >120 - Clopidogrel was initiated. Aspirin is discontinued - Atorvastatin 40 mg daily started. - Lipid Panel shows cholesterol 182 LDL 107 and triglycerides of 55: Patient is currently on statin - Speech and swallow evaluation showed no deficiencies. --Ultrasound of carotids was ordered as patient declined MRA stroke protocol: Negative for severe critical stenosis --A1c is ordered to see if we need to treat his diabetes: A1C 5.5 -- Based on the echo result consider a general patch and Holter monitor discharge -- Discussed care with Dr. Gunner Liang from [facility], who feels that his findings of right sided leg and arm weakness and more consistent with his CT finding of a left temporoparietal hypodensity. This could be due to an old stroke. He would have had MCA defects w/ diplopia. He recommends a duplex US of legs, CTA of brain and neck, holter monitor for d/c. We appreciate their time and recs. 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 Patient presented with BP of 185/95. Unclear whether he took his evening dose of metoprolol. - Allow permissive hypertension as above. - Home regimen includes metoprolol tartrate 50 mg twice a day and lisinopril 40 mg daily. -- Restarted home regimen as his past 24 hours COPD, present on admission, chronic. Secondary to tobacco use. - Home regimen includes pro-air as needed. - Duonebs every 6 hours as needed. Anxiety, present on admission, presumed stable. - Continue home regimen of paroxetine 20 mg daily. Tobacco use disorder, present on admission, ongoing. - Patient requested nicotine patch. BPH, present on admission, chronic. - Home regimen includes Tamsulosin 0.4 mg daily. Right extremity weakness, chronic: Chronic according to patient PRN Medications - Acetaminophen as needed for mild pain/fever/headache - Bowel regimen as needed - Antiemetic as needed Patient is admitted under observation status with expected length of stay less than 2 midnights due to severity of presenting symptoms, risk of adverse event, and complexity of treatment plan. GI Prophylaxis: Not indicated VTE Prophylaxis: Sub-Q Heparin (Unfractionated), SCDs Resuscitation Status: DNR/DNI:Do Not Resuscitate/Intubate Time spent 45 min Aline Thomson DO Feb 19, 2017 11:04
--- NOTE | 2017-02-19 11:57 | NUR ---
Evaluation completed. Please go to "Notes" then click on "Assessments and Notes" (bottom left corner of screen). Then select appropriate discipline tab on top of screen.
[2017-02-19] MEDS: Lisinopril 40 Tablet PO SCH (12:26)
--- NOTE | 2017-02-19 13:42 | DRSVH ---
PROCEDURE: US VENOUS LEG DUPLEX BILATERAL INDICATIONS: stroke work up TECHNIQUE: Real-time imaging, as well as color and pulse Doppler interrogation, were performed of the deep veins of both legs from the inguinal ligament to the popliteal fossa. COMPARISON: None. FINDINGS: The deep veins are normally compressible, and free of intraluminal thrombus. Color and pu lse Doppler demonstrate normal phasic intravascular flow. There is normal augmentation response to d istal compression maneuver. IMPRESSION: No deep vein thrombosis of the bilateral lower extremities. Dictated by: Opal Mariee M.D. on 02/19/2017 at 13:28 Approved by: Opal Mariee M.D. on 02/19/2017 at 13:39
--- NOTE | 2017-02-19 14:32 | DRSVH ---
PROCEDURE: CT ANGIO HEAD AND NECK (P) INDICATIONS: stroke work up TECHNIQUE: Pre-contrast 4.5 mm thick sections acquired from the foramen magnum to the vertex. After the adminis tration of intravenous contrast, 1 mm thick sections acquired from the aortic arch through the [place] of [place]. Post-contrast 4.5 mm thick sections then re-acquired from the foramen magnum to the vert ex. 3-dimensional cyyktde-lqijqwbvt-bvcgnohzmi (MIP) and/or volume rendering reformats were acquired of the central intracranial vasculature and neck separately. For radiation dose reduction, the foll owing was used: automated exposure control, adjustment of mA and/or kV according to patient size. COMPARISON: [facility], CT, CT BRAIN WO CON, 02/17/2017, 21:55. FINDINGS: Image quality: Limited by patient positioning factors, motion artifact, and kyphosis. BRAIN: CSF spaces: Ventricles are normal in size and shape. Basal cisterns are patent. No extra-axial flu id collections. Brain: No midline shift. No intracranial bleeds or masses. Ill-defined low density within the left anterior temporal lobe measuring 35 mm transverse by 37 mm anteroposterior by 15 mm craniocaudal is present. Peralta-white matter interface appears intact. Skull and face: Calvarium and facial bones appear intact, without suspicious lesions. Orbits appear normal. Sinuses: Sinuses and mastoids are clear. HEAD CT ANGIOGRAPHY: Anterior circulation: Intracranial internal carotid arteries are normal in size and flow. The flow within the paired anterior cerebral arteries is normal and symmetric. The flow within the middle cer ebral arteries is normal and symmetric. The anterior communicating artery is seen. No aneurysms are seen. Posterior circulation: Visualized portions of the vertebral arteries demonstrate normal caliber, and join to form a normal appearing basilar artery. Flow within the posterior cerebral arteries is norm al and symmetric. No aneurysms are seen. NECK CT ANGIOGRAPHY: Carotid system: The great vessels demonstrate a conventional anatomy as they arise from the aortic a [facility]. The origins of the common carotid arteries appear patent. The mid common carotid arteries are not well seen, but are otherwise patent. The right external carotid artery is patent. The right inter nal carotid artery demonstrates a roughly 60% stenosis proximally, and is otherwise patent. The left external carotid artery is patent. There is roughly 60% stenosis of the proximal left internal caroti d artery, which is otherwise patent. Posterior circulation: The right vertebral artery origin is not well seen, but is otherwise patent. Left vertebral artery origin is patent. The more superior extracranial portions of both vertebral art eries also demonstrate normal courses and calibers. They join to form a normal appearing basilar art earl. Soft tissues: Visualized neck soft tissues demonstrate no suspicious abnormalities. There is modera te biapical emphysema. Biapical scarring is present. Bilateral thyroid nodules are present, largest o f which is in the right lobe anteriorly measuring 11 mm. Bones: No suspicious bony lesions. Visualized cervical spine appears normally aligned. IMPRESSION: 1. Roughly 60% stenosis of the bilateral proximal internal carotid arteries. 2. Suboptimally visualized right vertebral artery origin. Vertebral arteries are otherwise patent. 3. Negative evaluation of the intracranial vasculature. 4. No change in left anterior temporal lobe hypodensity, compatible with subacute infarct. Dictated by: Shannon Gale M.D. on 02/19/2017 at 14:14 Approved by: Shannon Gale M.D. on 02/19/2017 at 14:30
--- NOTE | 2017-02-19 18:30 | NUR ---
CT/Neuros Patient agreed to CT with contrast today. Patient has some Rt sided weakness, which he reports is baseline. No other deficits noted.
[2017-02-20 01:25] VITALS: BP 160/77; PULSE 67; RESP 16; O2SAT 94
[2017-02-20 04:44] VITALS: PULSE 67; RESP 18; O2SAT 94
[2017-02-20 05:47] VITALS: BP 168/95; PULSE 64; RESP 18; O2SAT 94
--- NOTE | 2017-02-20 06:22 | NUR ---
Uneventful Night: Pt had an uneventful night, no c/o pain, chest pain or SOB. Slept most of the night, pleasant and cooperative with care.
[2017-02-20] MEDS: Heparin 5,000 Unit/mL Inj SUBQ SCH (09:08)
[2017-02-20] MEDS: Lisinopril 40 Tablet PO SCH (09:08)
--- NOTE | 2017-02-20 10:26 | NUR ---
Social Work-multidisciplinary rounds: Per MD, pt will likely discharge home today. PT/ST have cleared pt for home no needs. No discharge needs identified. CHERI Del Castillo
[2017-02-20 11:02] VITALS: PULSE 80
[2017-02-20] MEDS ORDERED: NICO1PAT6 TOPICAL (13:44)
--- NOTE | 2017-02-20 13:50 | PCM.DIMED ---
Discharge Instructions Date of Service Feb 20, 2017 Dates of Hospitalization Feb 17, 2017 at 23:58 Discharge Diagnosis Discharge Diagnosis Acute CVA, Hypertension, Hyponatremia, COPD, Tobacco abuse Diet Discharge Diet: Heart Healthy Activity Discharge Activity: Outpatient Physical Therapy Call your provider Call your provider for: Fever or Chills, Shortness of breath, Bleeding, Chest pain, Vomitting, Excessive diarrhea, Weakness (unilateral), Other Patient Instructions Patient Instructions Please f/u with o/p PT/OT: PT recommends d/c to home with OPPT 2-3x/week to improve his functional strength, balance, and safety. No further acute PT needs indicated. F/U with PCP in 1 week, request ziopatch from PCP. Patient declined AMY but if agrees to be considered , PCP may consider cardiology consult o/p F/U with Neurology in 3-4 weeks with [facility] Fluid restriction of 1L per day from all sources. F/U Lab BMP in one week prior to PCP visit for hyponatremia Please note new meds plavix and Atorvastatin Follow-up plan Please f/u with o/p PT/OT: PT recommends d/c to home with OPPT 2-3x/week to improve his functional strength, balance, and safety. No further acute PT needs indicated. F/U with PCP in 1 week, request ziopatch from PCP. Patient declined AMY but if agrees to be considered , PCP may consider cardiology consult o/p F/U with Neurology in 3-4 weeks with [facility] Fluid restriction of 1L per day from all sources. F/U Lab BMP in one week prior to PCP visit for hyponatremia Aline Thomson DO Feb 20, 2017 13:50
--- NOTE | 2017-02-20 13:56 | NUR ---
Social Work-discharge: Data:EMR reviewed. Pt is on day 3 of hospitalization for TIA per H&P. pt is medically stable for discharge. PT has cleared pt for home with outpt Pt Services. pt's family to provide transport home. SW confirmed with pt and daughter no needs. No discharge needs identified. All updated and agreeable to plan. Assessment:Pt who is independent at baseline. Plan:Pt to discharge home today via POV. No discharge needs identified. All updated and agreeable to plan. CHERI Del Castillo
[2017-02-20 14:24] VITALS: BP 176/83; PULSE 73; RESP 20; O2SAT 95
--- NOTE | 2017-02-20 15:45 | NUR ---
Discharge Patient departed unit via wheelchair, accompanied by staff and family. Patient alert and oriented at time of discharge. Patient Up independently with personal cane, care for own ADL's. Nutritional intake good. Patient reports a bowel movement this morning and no difficulties with urination. Discharge instructions/medications and 1 Ltr fluid restriction, reviewed with patient and family prior to discharge. All questions addressed. Discharge instructions, batient belongings and prescriptions in hand.
--- NOTE | 2017-02-21 01:18 | PCM.DC.MED ---
Discharge Summary Date of Service Feb 20, 2017 Dates of Hospitalization Date of Hospital Admission Feb 17, 2017 at 23:58 Date of Discharge: Feb 20, 2017 Providers: Admitting Physician: Meaghan Cano DO Primary Care Physician: Angeline Corrales MD Attending Physician: Aline Valerio DO Diagnosis at Time of Discharge Diagnosis at Time of Discharge Acute CVA, Hypertension, Hyponatremia, COPD, Tobacco abuse Consultations PT/OT/ST/[facility] Procedures XRay, CTs & MRIs Noncontrast CT Head Conclusion: Loss of wilhelm/white matter differentiation involving the inferior left temporal lobe suggesting an acute infarct. Moderate involutional changes. Moderate patchy low density bilaterally in the deep white matter likely due to chronic ischemic small vessel disease. No acute intracranial abnormality. These findings were discussed with Dr. Bob Lyons/04/2017 10:11 PM This report is transmitted to the emergency room at 02/17/2017 10:22 PM scene shifter radiology ECG 12 Lead Normal sinus rhythm Cardiac Echo Impression Reason For Study: TIA Ordering Physician: HOSPITALIST [facility] Performed By: Kaylie Garcia Referring Physician: Gael Ibrahim Interpretation Summary Technically difficult study. Mild concentric left ventricular hypertrophy with ejection fraction 55-60%. Grade I diastolic dysfunction. Mildly dilated left atrium. Mild aortic stenosis. The peak aortic velocity is 2.1 m/sec. Mild aortic regurgitation. Moderate mitral annular calcification. Mild-moderately enlarged ascending aorta. Injection of contrast documented an interatrial shunt. Electronically signed by: Talib Jacques on Reading Physician:02/18/2017 04:09 PM Brief History Gómez Segundo is an 81-year-old man with past medical history significant for hypertension, COPD, anxiety, and tobacco use who presents with diplopia. Patient states that she was lying in bed watching TV when suddenly he began to have double vision around 1999 on 02/17/17. He immediately called his daughter who arrived at the house and subsequently brought him to the ED. Daughter states that when her father called his speech was clear and easily understood. Patient denies any associated symptoms including weakness, slurred speech, facial droop, confusion, or headache. Diplopia was still present on arrival to the ED but resolved without intervention over the next half an hour. Patient denies any use of blood thinners aside from aspirin 81 mg. Patient denies any prior episodes of diplopia or history of TIA or stroke. He denies any shortness of breath, chest pain, nausea, vomiting, dysuria, or diarrhea. On presentation to the ED vitals were temperature 36.7, pulse 80, respiratory rate 20 saturating 98% on room air, and blood pressure 185/95. Brain CT revealed loss of currently in white matter differentiation involving the inferior left temporal lobe suggesting an acute infarct, moderate patchy low density deep white matter changes likely due to chronic ischemic small vessel disease, but no acute intracranial abnormality. Hospital Course Gómez Segundo is an 81-year-old man with past medical history significant for hypertension, COPD, anxiety, and tobacco use who presents with diplopia. Admitted for observation of possible TIA. Acute CVA, present on admission, active. - Not a candidate for TPA due to symptom resolution. - Head CT without contrast results as above. - ABCD score was 3. - EKG showed normal sinus rhythm. - Monitor on telemetry to rule out atrial fibrillation. - MR stroke protocol ordered. Patient refused - Clopidogrel was initiated. Aspirin is discontinued - Lipid Panel shows cholesterol 182 LDL 107 and triglycerides of 55: Atorvastatin 40 mg daily started. - Speech and swallow evaluation showed no deficiencies. --Ultrasound of carotids was ordered as patient declined MRA stroke protocol: Negative for severe critical stenosis --A1c is ordered to see if we need to treat his diabetes: A1C 5.5 --Based on the echo result we request that PCP considers a zio patch or Holter monitor discharge --Discussed care with Dr. Gunner Liang from [facility], who feels that his findings of right sided leg and arm weakness and more consistent with his CT finding of a left temporoparietal hypodensity. This could be due to an old stroke. He would have had MCA defects w/ diplopia. He recommends a duplex US of legs, CTA of brain and neck, holter monitor for d/c. We appreciate their time and recs. -- Pt and daughter agreed for the tests above, they are ordered: DVT U/S neg. CTA of neck and Brain:"Roughly 60% stenosis of the bilateral proximal internal carotid arteries.Suboptimally visualized right vertebral artery origin. Vertebral arteries are otherwise patent. Negative evaluation of the intracranial vasculature. No change in left anterior temporal lobe hypodensity, compatible with subacute infarct. 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 Patient presented with BP of 185/95. Unclear whether he took his evening dose of metoprolol. - Allow permissive hypertension as above. - Home regimen includes metoprolol tartrate 50 mg twice a day and lisinopril 40 mg daily. -- Restarted home regimen as his past 24 hours COPD, present on admission, chronic. Secondary to tobacco use. - Home regimen includes pro-air as needed. - Duonebs every 6 hours as needed. Anxiety, present on admission, presumed stable. - Continue home regimen of paroxetine 20 mg daily. Tobacco use disorder, present on admission, ongoing. - Patient requested nicotine patch. BPH, present on admission, chronic. - Home regimen includes Tamsulosin 0.4 mg daily. Right extremity weakness, chronic: Chronic according to patient PRN Medications - Acetaminophen as needed for mild pain/fever/headache - Bowel regimen as needed - Antiemetic as needed Patient is admitted under observation status with expected length of stay less than 2 midnights due to severity of presenting symptoms, risk of adverse event, and complexity of treatment plan. Exam Vital Signs (Last) Date Time Temp Pulse Resp B/P Pulse Ox O2 Delivery O2 Flow Rate FiO2 02/20/17 11:02 80 02/20/17 05:47 36.3 18 168/95 94 Room Air Exam Gen.: No acute distress laying in bed physical examination HEENT: Hard of hearing Eyes: [place] conjunctivae. No ptosis, PERR Neck: No masses, trachea midline, no thyromegaly Lungs: CTA with normal respiratory effort, no crackles or wheezes CV: RRR, no murmurs/rubs/gallops, normal PMI GI: Soft, non-distended Neurological: CN II-12 grossly normal, gagging deferred, visual allen intact, neg for nystagmus Skin: Warm and dry. No rash, lesions or ulcers Psych: A&O X3, with appropriate affect Test 02/17/17 21:45 02/17/17 23:15 02/18/17 05:20 02/18/17 15:17 Neutrophils (%) (Auto) 48.1% (40-74) Lymphocytes (%) (Auto) 31.2% (14-46) Monocytes (%) (Auto) 15.2% (4-12) Eosinophils (%) (Auto) 4.3% (0-5) Basophils (%) (Auto) 0.9% (0-3) Hold Purple Top Tube Received (Received) Prothrombin Time 10.0sec (8.1-12.5) Prothromb Time International Ratio 0.94ratio Activated Partial Thromboplast Time 33.6sec (22.8-33.0) Hold Blue Top Tube Received (Received) Total Bilirubin 0.5mg/dL (0.0-1.2) Aspartate Amino Transf (AST/SGOT) 22U/L (0-50) Alanine Aminotransferase (ALT/SGPT) 13U/L (0-44) Alkaline Phosphatase 104U/L (25-160) Troponin T 0.010ug/L (0.0-0.011) Total Protein 7.1g/dL (6.4-8.4) Albumin 4.1g/dL (3.4-5.0) Hold Capac Top Tube Received (Received) Hold [place] Top Tube Received (Received) Urine Color Yellow (YELLOW) Urine Appearance Clear (CLEAR,HAZY) Urine pH 6.5 (5.0-8.0) Urine Specific [place] 1.005 (1.003-1.035) Urine Protein Negativemg/dL (NEG,TRACE) Urine Glucose (UA) Negativemg/dL (NEGATIVE) Urine Ketones Negativemg/dL (NEGATIVE) Urine Occult Blood Trace (NEGATIVE) Urine Nitrite Negative (NEGATIVE) Urine Bilirubin Negative (NEGATIVE) Urine Urobilinogen Normalmg/dL (NORMAL) Urine Leukocyte Esterase Negative (NEGATIVE) Urine RBC 0-2/hpf (0-2) Urine WBC 0-5/hpf (0-5) Urine Epithelial Cells Occasional/hpf (NONE-MOD) Urine Crystals None seen (NONE SEEN) Urine Bacteria None/hpf (NONE-FEW) Urine Hyaline Casts None/lpf (NONE) Urine Granular Casts None seen (NONE SEEN) Urine Waxy Casts None seen (NONE SEEN) Urine Red Blood Cell Casts None seen (NONE SEEN) Urine White Blood Cell Casts None seen (NONE SEEN) Urine Mucus None seen (None Seen) Urine Trichomonas None seen (NONE SEEN) Urine Yeast None (NONE SEEN) Urinalysis Comment None Urine Culture Reflexed Not indicated White Blood Count 6.4th/mm3 (3.8-10.1) Red Blood Count 4.79mil/mm3 (4.40-5.80) Hemoglobin 14.7g/dL (13.8-17.2) Hematocrit 42.6% (41.0-50.0) Mean Corpuscular Volume 88.9fL (81-100) Mean Corpuscular Hemoglobin 30.7pg (27.0-35.0) Mean Corpuscular Hemoglobin Concent 34.5% (32.0-37.0) Red Cell Distribution Width 12.9% (12.3-15.4) Platelet Count 226bil/L (150-400) Osmolality 272 (275-300) Triglycerides Level 55mg/dL (0-149) Cholesterol Level 182mg/dL (100-199) LDL Cholesterol, Calculated 107.000mg/dL (0-99) VLDL Cholesterol 11.000mg/dL HDL Cholesterol 64mg/dL (>39) Cholesterol/HDL Ratio 2.84 (0.0-4.4) Thyroid Stimulating Hormone (TSH) 1.770uIU/mL (0.450-4.500) Free Thyroxine 1.17ng/dL (0.82-1.77) Hemoglobin A1c 5.5% (4.8-5.6) Cortisol 15.8ug/dL (.) Test 02/18/17 18:03 02/20/17 05:25 Urine Osmolality 548mOs/kH2O (250-1200) Urine Random Sodium 64mEq/L Sodium Level 132mEq/L (134-144) Potassium Level 4.3mEq/L (3.5-5.2) Chloride Level 96mEq/L (97-108) Carbon Dioxide Level 22mmol/L (18-29) Blood Urea Nitrogen 16mg/dL (8-27) Creatinine 0.75mg/dL (0.76-1.27) Estimat Glomerular Filtration Rate 106mL/min (>59) Glucose Level 91mg/dL (60-99) Calcium Level 9.1mg/dL (8.5-10.1) Discharge Medications Discharge Medications Aspirin Chew (Aspirin Chew) 81 Mg Chew 81 MG PO QAM (Reported) Atorvastatin Calcium (Atorvastatin Calcium) 40 Mg Tablet 40 MG PO HS Prescribed by: ALINE VALERIO DO Cholecalciferol (Vitamin D3) (Vitamin D3) 2,000 Unit Tablet 2,000 UNIT PO QAM ( Reported) Clopidogrel (Clopidogrel) 75 Mg Tablet 75 MG PO DAILY Prescribed by: ALINE VALERIO DO Lisinopril (Lisinopril) 40 Mg Tablet 40 MG PO QAM (Reported) Metoprolol Tartrate (Metoprolol Tartrate) 50 Mg Tablet 50 MG PO BID (Reported) Nicotine 21 mg/24 hr Patch (Nicotine 21 mg/24 hr Patch) 1 Each Patch.td24 1 PATCH TOPICAL DAILY Prescribed by: ALINE VALERIO DO Paroxetine (Paroxetine) 20 Mg Tablet 20 MG PO QAM (Reported) Tamsulosin ER (Tamsulosin ER) 0.4 Mg Cap.er.24h 0.4 MG PO DAILYWD (Reported) As needed Albuterol HFA (Proair HFA) 8.5 Gm Hfa.aer.ad 2 PUFFS INHALATION Q4H PRN PRN For Shortness of Breath (Reported) Fluticasone Propionate (Flonase Allergy Relief) 50 Mcg/Actuation [place].susp 1 SPRAYS NS DAILY PRN PRN For Congestion (Reported) Loratadine (Loratadine) 10 Mg Capsule 10 MG PO DAILY PRN PRN allergies (Reported ) Followup Plan Follow-up plan Please f/u with o/p PT/OT: PT recommends d/c to home with OPPT 2-3x/week to improve his functional strength, balance, and safety. No further acute PT needs indicated. F/U with PCP in 1 week, request ziopatch from PCP. Patient declined AMY but if agrees to be considered , PCP may consider cardiology consult o/p F/U with Neurology in 3-4 weeks with [facility] Fluid restriction of 1L per day from all sources. F/U Lab BMP in one week prior to PCP visit for hyponatremia Discharge Diet: Heart Healthy Discharge Activity: Outpatient Physical Therapy Patient Instructions Please f/u with o/p PT/OT: PT recommends d/c to home with OPPT 2-3x/week to improve his functional strength, balance, and safety. No further acute PT needs indicated. F/U with PCP in 1 week, request ziopatch from PCP. Patient declined AMY but if agrees to be considered , PCP may consider cardiology consult o/p F/U with Neurology in 3-4 weeks with [facility] Fluid restriction of 1L per day from all sources. F/U Lab BMP in one week prior to PCP visit for hyponatremia Please note new meds plavix and Atorvastatin Time spent 35 min Aline Valerio DO Feb 20, 2017 13:51
== END 2017-02-20 15:46 | disposition home or self-care (01) ==
LOC: SED 21:18 → MPC 23:58
PROVIDERS: ADMIT Internal Medicine; ATTEND Family Medicine
DX: I63.9 Cerebral infarction, unspecified (principal); H53.2 Diplopia; R53.1 Weakness; I10 Essential (primary) hypertension; E87.1 Hypo-osmolality and hyponatremia; J44.9 Chronic obstructive pulmonary disease, unspecified; F17.210 Nicotine dependence, cigarettes, uncomplicated; F41.9 Anxiety disorder, unspecified; N40.0 Benign prostatic hyperplasia without lower urinary tract symptoms; Z79.82 Long term (current) use of aspirin; Z79.51 Long term (current) use of inhaled steroids; N28.9 Disorder of kidney and ureter, unspecified; Z66 Do not resuscitate
CPT/HCPCS: 36415; 70450; 70496; 70498; 80048; 80053; 80061; 81000; 82533; 83036; 83930; 83935; 84300; 84439; 84443; 84484; 85025; 85027; 85610; 85730; 92610; 93005; 93880; 93970; 94799; 97162; 99285; C8929; G8978; G8979; G8980; G8996; G8997; G8998; J1644; Q9967